=== PATIENT | female | born 1945 | race Caucasian/White ===

== ENCOUNTER → 2017-08-03 | Outpatient (CLI) | payer MEDICARE ==
[~2017-08-03] MED LIST: ESTR1TAB17 PO; ZOLP5TAB2 PO
== END | disposition home or self-care (01) ==
LOC: RAH 09:19
PROVIDERS: ATTEND Internal Medicine
DX: M77.12 Lateral epicondylitis, left elbow (principal)
CPT/HCPCS: 73080

== ENCOUNTER → 2017-09-16 | Outpatient (CLI) | payer MEDICARE | END | disposition home or self-care (01) | LOC: RAH 15:29 | PROVIDERS: ATTEND Physical Medicine & Rehabilitation | DX: M47.22 Other spondylosis with radiculopathy, cervical region (principal) | CPT/HCPCS: 72040 ==

== ENCOUNTER → 2017-12-15 | Outpatient (CLI) | payer MEDICARE | END | disposition home or self-care (01) | LOC: RAH 07:44 | PROVIDERS: ATTEND Physical Medicine & Rehabilitation | DX: M48.02 Spinal stenosis, cervical region (principal); M47.22 Other spondylosis with radiculopathy, cervical region; M25.78 Osteophyte, vertebrae | CPT/HCPCS: 72141 ==

== ENCOUNTER → 2018-05-06 | Outpatient (CLI) | payer MEDICARE | END | disposition home or self-care (01) | LOC: RAH 11:25 | PROVIDERS: ATTEND Internal Medicine | DX: E28.0 Estrogen excess (principal) | CPT/HCPCS: 76856 ==

== ENCOUNTER → 2019-11-27 | Outpatient (CLI) | payer MEDICARE | END | disposition home or self-care (01) | LOC: SHCH 13:13 | PROVIDERS: ATTEND Internal Medicine Cardiovascular Disease | DX: R55 Syncope and collapse (principal) | CPT/HCPCS: 93306; 93356 ==

== ENCOUNTER 2019-12-05 05:49 | Day surgery (SDC) | payer MEDICARE ==
[~2019-12-05] VITALS: Ht 157.5 cm; Wt 58.1 kg
[~2019-12-05 05:49] MED LIST changes: -ZOLP5TAB2 PO
[2019-12-05] MEDS ORDERED: SODIUM CHLORIDE 0.9% 1000ML 1,000 ML IV ONE (06:12)
[2019-12-05 06:42] VITALS: BP 143/64
[2019-12-05] MEDS ORDERED: SIMETHICONE 40 MG/0.6 ML ML ONE (07:04)
[2019-12-05] MEDS ORDERED: EPINEPHRINE 1 MG/ML AMPULE ONE (07:06)
[2019-12-05] MEDS ORDERED: PHENYLEPHRINE HCL 10 MG/ML 1ML VIAL IV ONE (07:06)
[2019-12-05] MEDS ORDERED: LIDOCAINE HCL 1% 20 ML VIAL ONE (07:06)
[2019-12-05] MEDS ORDERED: PROPOFOL 10 MG/ML 20ML VIAL IV ONE (07:06)
[2019-12-05 07:34] VITALS: BP 107/58
[2019-12-05 07:40] VITALS: BP 108/50
[2019-12-05 07:45] VITALS: BP 109/76
[2019-12-05 07:50] VITALS: BP 137/77
[2019-12-05 07:55] VITALS: BP 139/78
== END 2019-12-05 08:11 | disposition home or self-care (01) ==
LOC: DAH 05:49
PROVIDERS: ATTEND Internal Medicine Gastroenterology
DX: K52.9 Noninfective gastroenteritis and colitis, unspecified (principal); Z90.49 Acquired absence of other specified parts of digestive tract; Z90.710 Acquired absence of both cervix and uterus; Z79.899 Other long term (current) drug therapy
CPT/HCPCS: 45380; 88305; 88342; A4215; A4221; A4222; A4223; A4606; A4615; A4657; A4663; J0171; J2370; J2704; J7030

== ENCOUNTER → 2021-01-29 | Outpatient (CLI) | payer MEDICARE | END | disposition home or self-care (01) | LOC: RAH 15:45 | PROVIDERS: ATTEND Internal Medicine | DX: M47.816 Spondylosis without myelopathy or radiculopathy, lumbar region (principal); M51.36 Other intervertebral disc degeneration, lumbar region; M43.16 Spondylolisthesis, lumbar region; M48.07 Spinal stenosis, lumbosacral region; M25.551 Pain in right hip | CPT/HCPCS: 72100; 73502 ==

== ENCOUNTER → 2022-01-16 | Outpatient (CLI) | payer MEDICARE | END | disposition home or self-care (01) | LOC: RAH 15:26 | PROVIDERS: ATTEND Internal Medicine | DX: M47.812 Spondylosis without myelopathy or radiculopathy, cervical region (principal); G57.02 Lesion of sciatic nerve, left lower limb; M81.0 Age-related osteoporosis without current pathological fracture; M85.88 Other specified disorders of bone density and structure, other site | CPT/HCPCS: 72040 ==

== ENCOUNTER → 2022-03-09 | Outpatient (CLI) | payer MEDICARE | END | disposition home or self-care (01) | LOC: RAH 11:59 | PROVIDERS: ATTEND Internal Medicine | DX: M47.812 Spondylosis without myelopathy or radiculopathy, cervical region (principal); M54.2 Cervicalgia; M81.0 Age-related osteoporosis without current pathological fracture; M48.02 Spinal stenosis, cervical region | CPT/HCPCS: 72141 ==

== ENCOUNTER → 2023-01-01 | Outpatient (CLI) | payer MEDICARE | END | disposition home or self-care (01) | LOC: RAH 10:07 | PROVIDERS: ATTEND Internal Medicine | DX: M47.816 Spondylosis without myelopathy or radiculopathy, lumbar region (principal); M48.07 Spinal stenosis, lumbosacral region; M54.31 Sciatica, right side | CPT/HCPCS: 72100 ==

== ENCOUNTER → 2025-06-08 | Outpatient (CLI) | payer MEDICARE ==
[~2025-06-08] MED LIST changes: +GADOTERATE MEGLUMINE 10 MMOL/20 ML VIAL IV ONE
--- NOTE | 2025-06-09 02:42 | HMCIMG ---
EXAM: MR Brain with and without Intravenous Contrast CLINICAL HISTORY: R42 Dizziness and giddiness TECHNIQUE: Multisequence, multiplanar magnetic resonance images of the brain were obtained before and after intravenous contrast administration. CONTRAST: 12 cc of intravenous Clariscan administered COMPARISON: None provided FINDINGS: Brain: No restricted diffusion to suggest acute infarction. No intracranial mass, hemorrhage, midline shift, or extra-axial collection. Mild diffuse cerebral volume loss appropriate for age. Scattered punctate T2/FLAIR hyperintensities in the periventricular and deep white matter consistent with borderline chronic microangiopathic ischemic changes. No abnormal post-contrast enhancement. Brainstem, basal ganglia, thalami, and cerebellum appear normal. Central arterial and venous flow voids are preserved. Ventricles: Normal in size and configuration without hydrocephalus. Orbits: Normal appearance of the globes, optic nerves, and extraocular muscles. Sinuses and Mastoids: Paranasal sinuses and mastoid air cells are clear. Bones: No acute fracture or aggressive osseous lesion. IMPRESSION: * Age-appropriate diffuse cerebral volume loss. * Borderline chronic microangiopathic ischemic changes in the periventricular white matter. * No acute infarction, hemorrhage, mass, or abnormal enhancement identified. /[employer]
== END | disposition home or self-care (01) ==
LOC: RAH 10:52
PROVIDERS: ATTEND Family Medicine
DX: I67.82 Cerebral ischemia (principal); R42 Dizziness and giddiness; R51.9 Headache, unspecified
CPT/HCPCS: 70553; A9575

== ENCOUNTER → 2025-06-19 | Outpatient (CLI) | payer MEDICARE ==
[~2025-06-19] MED LIST changes: -GADOTERATE MEGLUMINE 10 MMOL/20 ML VIAL IV ONE
--- NOTE | 2025-06-20 11:03 | HMCIMG ---
CLINICAL INDICATION: Age-related osteoporosis without current pathological fracture COMPARISON: None available TECHNIQUE: Bone densitometry is performed of the lumbar spine and left hip. FINDINGS: Total BMD of lumbar spine is 1.042 g/cm2 with a T-score of 0.0 and Z-score is 2.7. Total BMD of left hip is 0.797 g/cm2 with a T-score of -1.2 and Z-score is 0.9. FRAX SCORE: The 10 year fracture risk for a major osteoporotic fracture and hip fracture not provided due to treated for osteoporosis IMPRESSION: 1. Osteopenia of the left hip 2. Normal lumbar spine 3. I would recommend follow-up in 13 months. World Health Organization criteria for BMD interpretation classify patients as Normal (T-score at or above -1.0), Osteopenic (T-score between -1.0 and -2.5), or Osteoporotic (T-score at or below -2.5). FRAX SCORE: A. All treatment decisions require clinical judgment and consideration of individual patient factors, including patient preferences, comorbidities, previous drug use, risk factors not captured in the FRAX model (e.g., frailty, falls, vitamin D deficiency, increased bone turnover, interval significant decline in bone density) and possible [id number]-estimation of fracture risk by FRAX. B. In addition, the NOF Guide recommends that FDA-approved medical therapies be considered in postmenopausal women and men age greater than or equal to 50 years with a: i. Hip or vertebral (clinical or morphometric) fracture. ii. T-score of less than or equal to -2.5 at the spine or hip. iii. Ten-year fracture probability by FRAX of greater than or equal to 3% for hip fracture of greater than or equal to 20% for major osteoporotic fracture.
== END | disposition home or self-care (01) ==
LOC: RAH 12:52
PROVIDERS: ATTEND Internal Medicine Endocrinology, Diabetes & Metabolism
DX: M81.0 Age-related osteoporosis without current pathological fracture (principal); M85.88 Other specified disorders of bone density and structure, other site
CPT/HCPCS: 77080